=== PATIENT | female | born 1955 | race Caucasian/White ===

== ENCOUNTER 2017-03-26 07:19 | Day surgery (SDC) | payer OTHER ==
[~2017-03-26] VITALS: Ht 160 cm; Wt 67.9 kg
[~2017-03-26 07:19] MED LIST: ASCO500 PO; CALCIUM 500 MG1 EACH PO; Daily Multiple1 EACH PO; FISH OIL 1,2001 EACH PO
== END 2017-03-26 09:15 | disposition home or self-care (01) ==
LOC: ORSCSDS 07:19
PROVIDERS: Internal Medicine Gastroenterology
PROC: 0DBH8ZX Excision of Cecum, Via Natural or Artificial Opening Endoscopic, Diagnostic (ICD-10-PCS; principal; 2017-03-26 08:30)
DX: Z12.11 Encounter for screening for malignant neoplasm of colon (principal); D12.0 Benign neoplasm of cecum; K64.1 Second degree hemorrhoids
CPT/HCPCS: 88305; J0330; J1980; J2405; J7120

== ENCOUNTER 2022-06-03 08:59 | Day surgery (SDC) | payer OTHER ==
[~2022-06-03] VITALS: Ht 160 cm; Wt 55.6 kg
[2022-06-03] MEDS ORDERED: EZET10 (09:32)
[2022-06-03] MEDS ORDERED: Phentermine HCl15 MG (09:32)
[2022-06-03 13:06] VITALS: BP 120/62
== END 2022-06-03 11:20 | disposition home or self-care (01) ==
LOC: ORSCSDS 08:59
PROVIDERS: Internal Medicine Gastroenterology
PROC: 0DJD8ZZ Inspection of Lower Intestinal Tract, Via Natural or Artificial Opening Endoscopic (ICD-10-PCS; principal; 2022-06-03 10:15)
PROC: 0DB68ZX Excision of Stomach, Via Natural or Artificial Opening Endoscopic, Diagnostic (ICD-10-PCS; principal; 2022-06-03 10:15)
DX: K21.9 Gastro-esophageal reflux disease without esophagitis (principal); R13.10 Dysphagia, unspecified; Z12.11 Encounter for screening for malignant neoplasm of colon; K64.8 Other hemorrhoids; Z86.010 Personal history of colon polyps; Z79.899 Other long term (current) drug therapy
CPT/HCPCS: 43239; G0105; 88305; 88312; J2704; J7120

== ENCOUNTER → 2024-01-03 | Outpatient (CLI) | payer OTHER ==
[~2024-01-03] MED LIST changes: +EZET10; +Phentermine HCl15 MG
== END | disposition home or self-care (01) ==
LOC: LAB SHORT 11:01 → LAB 11:01
DX: N39.0 Urinary tract infection, site not specified (principal)
CPT/HCPCS: 87086